=== PATIENT | male | born 1980 | race Caucasian/White ===

== ENCOUNTER 2021-04-16 00:45 | Day surgery (SDC) | payer OTHER, SELFPAY ==
[2021-04-03 13:23] VITALS: BMI 24.4
[2021-04-16 11:16] VITALS: BP 151/89; PULSE 68; RESP 16; TEMP 36.9; O2SAT 100; BMI 22.9
[2021-04-16] MEDS: LACTATED RINGERS 1,000 ML 150 ML IV CONT (11:23)
--- NOTE | 2021-04-16 11:36 | WPDANESEPPF ---
Anes - Initial Pre Proc Eval Procedure: Operation Date: 04/16/21 12:30 Proposed Procedures p Colonoscopy - Benjamin Thakur MD Date/Time: 04/16/21 11:36 Surgeon: Benjamin Thakur MD Pre Op Diagnosis: diarrhea Patient Data Age: 40 Gender: M Height: 1.75 m Weight: 70.6 kg Last Vital Signs Temp 98.5 F 04/16/21 11:16 Pulse 68 04/16/21 11:16 Resp 16 04/16/21 11:16 BP 151/89 H 04/16/21 11:16 Pulse Ox 100 04/16/21 11:16 Allergies Allergy/AdvReac Type Severity Reaction Status Date / Time No Known Allergies Allergy Verified 04/16/21 11:16 Home Medications Medication Instructions Recorded Confirmed Type tadalafil 10 mg tablet 10 mg PO DAILY PRN #24 tablet 07/31/20 03/23/21 Rx Patient hx anesthesia problems: none Family hx anesthesia problems: none Results Review: All pre-operative results and documents have been reviewed as part of the pre-operative evaluation. [facility] Past Medical History Medical History History of pelvic trauma History of traumatic fracture of hip Family History Family History Father Family history of type 1 diabetes mellitus Social History Social History Social History: Single Years smoked: 15 Smoking status: Never smoker Tobacco type: cigarettes Second hand tobacco smoke exposure: No Smoking end date: 07/19/13 Alcohol intake: current Alcohol use details: Occasionally Substance use: never Substance use type: does not use Living arrangements: with roommate(s) Additional living arrangements comments: Pt and his girlfriend, along with 4 children live together. Gender identity (if verbalized by the patient): Male Sexual Orientation (if Verbalized by the Patient): Straight or Heterosexual Spiritual care concerns: No Anes - Eval Final PreProcedure Day of Procedure 04/16/21 11:36 Patient weight: normal Heart: regular rate and rhythm Lungs: clear to auscultation Airway: Mallampati scale class II Neurological: alert and oriented Last oral intake: >/= 8 hours ASA classification: II Emergent: no Anesthetic plan: proceed Anesthesia type and monitoring: general GIVS and standard monitoring Results Review: All pre-operative results and documents have been reviewed as part of the pre-operative evaluation. Informed Consent: The patient's anesthetic plan and its attendant risks and benefits were discussed with the patient/family/POA. Questions were solicited and answers provided to the satisfaction of the patient/family/POA.
--- NOTE | 2021-04-16 11:50 | WPDHPUPDATE1 ---
History and Physical Update Update Date/Time: 04/16/21 11:50 History and Physical has been reviewed, including an updated exam of the patient. There are NO changes in the patient's condition. Risks, benefits, and alternatives have been discussed and questions answered. Patient agrees to proceed with procedure.
[2021-04-16 12:15] VITALS: BP 120/63; PULSE 65; RESP 21; O2SAT 98
[2021-04-16 12:25] VITALS: BP 125/71; PULSE 64; RESP 18; O2SAT 100
[2021-04-16 12:35] VITALS: BP 125/75; PULSE 60; RESP 16; O2SAT 100
== END 2021-04-16 12:40 | disposition home or self-care (01) ==
PROVIDERS: PCP Family Medicine; Visit Provider Internal Medicine Gastroenterology
PROC: 0DJD8ZZ Inspection of Lower Intestinal Tract, Via Natural or Artificial Opening Endoscopic (ICD-10-PCS; CPT 45378; principal; 2021-04-16 12:30)
DX: R19.7 Diarrhea, unspecified (principal); D12.2 Benign neoplasm of ascending colon; D12.3 Benign neoplasm of transverse colon; D12.5 Benign neoplasm of sigmoid colon; K63.5 Polyp of colon; K57.30 Diverticulosis of large intestine without perforation or abscess without bleeding
CPT/HCPCS: 45385; 45380; 88305; J2704; J7120

== ENCOUNTER 2022-01-07 12:23 | Outpatient (CLI) | payer OTHER, SELFPAY | END 2022-01-07 12:24 | disposition home or self-care (01) | LOC: ANHSURGERY 12:26 | PROVIDERS: PCP Family Medicine; Visit Provider Surgery | DX: K40.90 Unilateral inguinal hernia, without obstruction or gangrene, not specified as recurrent (principal); Z01.818 Encounter for other preprocedural examination | CPT/HCPCS: 36415; 86850; 86900; 86901 ==

== ENCOUNTER 2022-01-12 02:10 | Day surgery (SDC) | payer OTHER, SELFPAY ==
[2022-01-06 14:42] VITALS: BMI 23.1
--- NOTE | 2022-01-06 14:50 | PC.NURSE ---
Report to the Outpatient Waiting Room, entrance under the green pavilion located off [facility], at time _1000_ on date _01/12/22_. OR Time: _1200_. - You and your visitor will be asked a series of questions to screen for COVID 19 for your protection. - Only one visitor is allowed at this time. - The patient visitor is requested to leave or wait in car when not with patient. - A mask is required within the hospital. Patients may have clear liquids (water, carbonated beverages, clear teas, apple juice) until 3 hours prior to surgery (0900 AM) with a maximum of 20 ounces. - No food from midnight until time of surgery Take the following medications with a SIP of water the morning of surgery: N/A Medications to discontinue per physician N/A Date to take last dose Please no make-up, nail greenlandic, hairspray, perfume, deodorant, or body powder the day of surgery. No jewelry (including any body piercings) or valuables the day of surgery, leave them at home. Please take a shower or bath the night before, or the morning of, surgery with an antibacterial soap. Wear comfortable, loose fitting clothing. - Jewelry must be removed prior to entering the operating room. Rings and piercings that are not removed may be cut off. - The hospital will not accept responsibility for valuables. - Please leave all valuables, including medications, at home the day of surgery. If you are going home after surgery, a licensed motor coach bus driver must drive you home. - NO public transportation without another adult. - We recommend that an adult stay with you for 24 hours following discharge. - We also recommend that you do not drive, make important decision, drink alcoholic beverages, or take any drugs that were not prescribed by your health care provider for at least 24 hours after your discharge time. Follow any additional instructions given to you from your surgeon. HIBICLENS SHOWER AM OF SURGERY If you or anyone in your household have experienced Covid symptoms in the past week, please notify your surgeon or the nurse liaison at the phone number below for possible testing. Telephone instructions given to ____PT and asked if any additional questions and then verbalized understanding. Patient advised to call surgeon office or pre surgery nurse liaison [phone] if any additional questions.
[2022-01-12] VITALS (9 sets, daily range): BP systolic 119–147; BP diastolic 67–89; PULSE 55–80; RESP 16–18; TEMP 36.8; O2SAT 98–100
--- NOTE | 2022-01-12 07:43 | WPDANESEPPF ---
Anes - Initial Pre Proc Eval Procedure: Operation Date: 01/12/22 09:00 Proposed Procedures p Robotic Assisted Left Inguinal Hernia Repair with Mesh - Anne Sterling MD Date/Time: 01/12/22 07:43 Surgeon: Anne Sterling MD Pre Op Diagnosis: left inguinal hernia Patient Data Age: 41 Gender: M Height: 1.75 m Weight: 70.9 kg Allergies Allergy/AdvReac Type Severity Reaction Status Date / Time No Known Allergies Allergy Verified 01/06/22 14:42 Home Medications Medication Instructions Recorded Confirmed Type tadalafil 10 mg tablet (Cialis) 10 mg PO DAILY PRN sexual activity 05/08/21 01/06/22 Rx #24 tabs Patient hx anesthesia problems: none Family hx anesthesia problems: none Results Review: All pre-operative results and documents have been reviewed as part of the pre-operative evaluation. [facility] Past Medical History Medical History History of pelvic trauma History of traumatic fracture of hip 2006 [facility] Family History Family History Father Family history of type 1 diabetes mellitus Social History Social History Years smoked: 15 Smoking status: Former smoker Tobacco type: cigarettes Second hand tobacco smoke exposure: No Smoking end date: 07/19/13 Additional smoking assessment comments: STATES SMOKED 1-2PK/WEEK/10YRS/QUIT 2011 Alcohol intake: current Alcohol use details: STATES 1-2 DRINKS A MONTH Substance use: never Substance use type: does not use Living arrangements: with friend(s) Additional living arrangements comments: LIVES WITH SIGNIFICANT OTHER 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 Gender identity (if verbalized by the patient): Male Sexual Orientation (if Verbalized by the Patient): Straight or Heterosexual Spiritual care concerns: No Anes - Eval Final PreProcedure Day of Procedure 01/12/22 07:43 Patient weight: normal Heart: regular rate and rhythm Lungs: clear to auscultation Airway: Mallampati scale class II Neurological: alert and oriented Last oral intake: >/= 8 hours ASA classification: II Emergent: no Anesthetic plan: proceed Anesthesia type and monitoring: general ETT and standard monitoring Results Review: All pre-operative results and documents have been reviewed as part of the pre-operative evaluation. Informed Consent: The patient's anesthetic plan and its attendant risks and benefits were discussed with the patient/family/POA. Questions were solicited and answers provided to the satisfaction of the patient/family/POA.
[2022-01-12] MEDS: ACETAMINOPHEN 500 MG TABLET 1000 MG PO (07:45)
[2022-01-12] MEDS: KETOROLAC 15 MG/ML VIAL (*BKC) IV PUSH (07:45)
[2022-01-12] MEDS: LACTATED RINGERS 1,000 ML 30 ML IV CONT ×2 (07:45→10:29)
--- NOTE | 2022-01-12 09:02 | WPDHPUPDATE1 ---
History and Physical Update Update Date/Time: 01/12/22 09:02 History and Physical has been reviewed, including an updated exam of the patient. There are NO changes in the patient's condition. Risks, benefits, and alternatives have been discussed and questions answered. Patient agrees to proceed with procedure.
[2022-01-12] MEDS: ceFAZolin 2 GM/D5W 50 ML 2 GM/50 ML BAG IVPB (09:12)
[2022-01-12] MEDS: LIDO 1%/EPINEPHRINE/PF 1:200,000 30 ML VIAL XX (10:12)
--- NOTE | 2022-01-12 10:32 | W.PM.PROC2 ---
Procedure Note - Detailed Date of Procedure 01/12/22 Pre-op Diagnosis left inguinal hernia Post-op Diagnosis Same Procedure Performed robotic assisted left inguinal hernia repair with mesh Surgeon Anne Sterling MD Anesthesia General Indications 41 y/o M presenting to office c bulging, discomfort in L groin. Workup c/w LIH. Findings indirect left inguinal hernia Description of Procedure Patient was brought into the operating room and placed in the supine position. After adequate induction of general anesthesia, the patient was prepped and draped in normal sterile fashion. A time-out was then done to verify the patient's identity, as well as the procedure being performed. I began by making a 8 mm incision in the supraumbilical region, a Veress needle was then placed into the peritoneal cavity. CO2 gas was then insufflated and after adequate pneumoperitoneum was achieved, the Veress needle was removed. I then placed an 8 mm trocar through this incision. I then placed the endoscope through this trocar site and under direct visualization placed 2 further 8 mm ports in the right and left mid abdomen. The [employer] robot was then docked to the 3 trocar sites. I then scrubbed out and went to the robotic console. Upon examining the pelvis, it was noted that the patient had a moderate left inguinal hernia. The right side was examined and no hernia defect was noted. I began by making a preperitoneal flap approximately 6 cm superior to the defect. This flap was carried medially past the umbilical ligaments and laterally to the transversalis. It then began dissection of my medial compartment taking this down to the pubic tubercle. I then began the lateral dissection taking this down to the transversalis fascia. Once these compartments were achieved, I began dissection around the cord structures. A moderate sized indirect hernia was noted at this point. Using careful dissection, was able to reduce indirect hernia sac off the cord structures. Once this was adequately done, I went ahead and placed a large piece of 3D Max mesh into the abdominal cavity. The mesh was carefully positioned, centering the center of the mesh over the indirect defect. Once this was done, was very satisfied with our repair. Using 3-0 Vicryl sutures, I tacked the mesh medially to Elliot's ligament. Two lateral sutures were placed from the mesh to the transversalis fascia. I then closed the peritoneal flap with a running 2.0 V Lock suture. The abdomen was then desufflated, and all ports were removed. All incisions were then closed with the 4.0 monocryl suture. Dermabond was placed on each wound. The patient tolerated the procedure well, was extubated in the operating room postoperatively, and will now be transferred to the recovery room in stable condition. Implants large 3DMax mesh Estimated Blood Loss 10 Drains No Packing No Pathology None sent Complications No immediate complications Condition Stable Disposition PACU [facility] Billing Surgery - Charge Forward: Surgery Billing
[2022-01-12] MEDS: fentaNYL CITRATE INJ (*CRX) 100 MCG/2 ML VIAL 25 MCG IV PUSH ×2 (10:52→10:55)
== END 2022-01-12 12:45 | disposition home or self-care (01) ==
PROVIDERS: PCP Family Medicine; Visit Provider Surgery
PROC: 8E0Y4CZ Robotic Assisted Procedure of Lower Extremity, Percutaneous Endoscopic Approach (ICD-10-PCS; CPT 49650; principal; 2022-01-12 09:00)
DX: K40.90 Unilateral inguinal hernia, without obstruction or gangrene, not specified as recurrent (principal); Z87.891 Personal history of nicotine dependence
CPT/HCPCS: 49650; S2900; 36415; 86850; 86900; 86901; A9270; C1781; J0690; J1100; J1170; J1885; J2250; J2405; J2704; J3010; J7030; J7120

== ENCOUNTER → 2023-03-24 13:07 | Outpatient (CLI) | payer OTHER, SELFPAY ==
--- NOTE | ~2023-03-24 | US_ITS ---
EXAMINATION: US soft tissue head and neck DATE: 03/24/2023 13:28 INDICATION: Localized enlarged cervical lymph nodes. TECHNIQUE: Multiple grayscale and Doppler ultrasound images of the left and right neck were obtained. COMPARISON: None FINDINGS: There is a borderline enlarged jugular chain lymph nodes measuring 2.8 x 1.7 x 0.9 cm on the right an d 3.9 x 1.1 x 1.0 cm on the left. There are several smaller lymph nodes on both the left and right, t he next largest measuring up to 6 mm in maximal short axis diameter on the right and 4 mm on the left . IMPRESSION: 1. A couple borderline enlarged jugular chain lymph nodes measuring 1 cm in maximal short axis diamet er on the left and 9 mm on the right. Differential would include reactive lymphadenopathy, lymphoma o r metastatic disease. Depending on clinical history and level of clinical could consider either follo w-up ultrasound or ultrasound-guided core needle biopsy. Reviewed, dictated and finalized at location A. IMPRESSION: 1. A couple borderline enlarged jugular chain lymph nodes measuring 1 cm in max imal short axis diameter on the left and 9 mm on the right. Differential would include reactive lymphadenopathy, lymphoma or metastatic disease. Depending on clinical history and level of clinical could consider either follow-up ultrasou nd or ultrasound-guided core needle biopsy.
== END ==
PROVIDERS: PCP Family Medicine; Visit Provider Physician Assistant
DX: R59.0 Localized enlarged lymph nodes (principal)
CPT/HCPCS: 76536

== ENCOUNTER 2023-04-05 10:17 | Outpatient (CLI) | payer OTHER, SELFPAY ==
--- NOTE | ~2023-04-05 | US_ITS ---
EXAMINATION: US biopsy lymph node DATE: 04/05/2023 11:33 INDICATION: Borderline enlarged right jugular chain lymph nodes. TECHNIQUE: The procedure including the risks and benefits was discussed with the patient. Risks discu ssed included bleeding and infection. The patient understood the risks and agreed to proceed. The sk in overlying the right neck was prepped and draped in usual sterile fashion. Anesthetic was administ ered with 1% lidocaine subcutaneously. An 18 gauge core biopsy needle was advanced under continuous ultrasound observation to the largest of several right jugular chain lymph nodes. 7 core biopsy spec imens were obtained, 3 placed in formalin and 4 in RPMI media. The needle was removed and the entry site was cleaned and dressed. Post procedure ultrasound demonstrated no hemorrhage. FINDINGS: Ultrasound images demonstrate biopsy needle advanced into the largest 2.9 x 0.9 cm right ju gular chain lymph node. IMPRESSION: 1. Successful Ultrasound-guided biopsy of a 2.9 x 0.9 cm right jugular chain lymph node. Reviewed, dictated and finalized at location A. IMPRESSION: 1. Successful Ultrasound-guided biopsy of a 2.9 x 0.9 cm right jugular chain ly mph node.
== END 2023-04-05 10:18 | disposition home or self-care (01) ==
PROVIDERS: PCP Family Medicine; Visit Provider Physician Assistant
DX: R59.0 Localized enlarged lymph nodes (principal)
CPT/HCPCS: 38505; 76942; 88305; 88341; 88342

== ENCOUNTER → 2023-04-09 12:36 | Outpatient (CLI) | payer OTHER, SELFPAY ==
--- NOTE | ~2023-04-09 | CT_ITS ---
Clinical Indication: Suspicious cervical lymph node, evaluate for malignancy CT Scan of the Chest with Contrast: Technique: Contiguous sections were acquired throughout the chest after intravenous administration of 75 cc of Omnipaque 350. Dose reduction technique was used on this scan by utilizing automated exposu re control and iterative reconstruction technique. The dose-length product (DLP) was 178.32 mGy-cm. Findings: There is no evidence of any significant mediastinal, hilar or axillary lymphadenopathy. There is no f illing defect in the pulmonary arterial tree to suggest pulmonary embolus. There is no evidence of ao rtic dissection or aneurysm. There is no evidence of pleural or pericardial effusion. The lungs are clear. No pulmonary nodules or infiltrates are noted. Images through the upper abdomen reveal no abnormalities. Impression: No significant abnormality seen in the chest. Reviewed, dictated and finalized at [facility]. Impression: No significant abnormality seen in the chest.
== END ==
PROVIDERS: PCP Physician Assistant; Visit Provider Physician Assistant
DX: R59.0 Localized enlarged lymph nodes (principal)
CPT/HCPCS: 71260; Q9967

== ENCOUNTER 2023-07-22 13:57 | Outpatient (CLI) | payer OTHER, SELFPAY ==
--- NOTE | ~2023-07-22 | PE_ITS ---
EXAMINATION: PET skull to mid thigh DATE: 07/22/2023 15:53 INDICATION: Head and neck lymphadenopathy TECHNIQUE: Blood glucose level was 80 mg/dL. 10.64 mCi of 18-fluorodeoxyglucose (18-FDG) was administ ered i.v. Low dose computed tomography (CT) images were acquired from the base of the brain to the pr oximal thighs for attenuation correction and anatomic localization. Positron emission tomography (PET ) images were acquired in the same distribution beginning 62 minutes after injection. Images includin g fused PET/CT images were reconstructed in axial, coronal, and sagittal planes. Automated exposure c ontrol technique was employed. The dose-length product was 681.39mGy-cm. COMPARISON: Chest CT dated 04/09/2023 and ultrasound dated 03/24/2023 FINDINGS: Head/neck: There is symmetric increased activity in the oral cavity, palatine and lingual tonsils, parotid gland s, submandibular glands, laryngeal muscles and ocular muscles without CT correlate, likely physiolog ic. There are couple level 2 right jugular chain lymph nodes measuring 6 mm and 8mm in short axis rojas meter which remains within normal limits which demonstrate mild FDG uptake with maximal SUV of 4.3. T here is a similar size 7 mm lymph node at the contralateral high left jugular chain with maximal SUV of 3.5. No pathologically enlarged cervical lymphadenopathy or more FDG avid lesions in the visualize d head or neck. Chest: Lungs are clear with no suspicious pulmonary nodules, pneumonia, pulmonary edema or other pulmonary i nfiltrates. Heart size is normal. No pericardial or pleural effusion. Thoracic aorta is normal in vj iber. No pathologically enlarged or FDG avid thoracic lymphadenopathy. Abdomen/pelvis/proximal thighs: Physiologic renal accumulation and excretion of FDG activity in the kidneys, bladder and along portio ns of ureters. 4 mm nonobstructing stone at the lower pole of the right kidney. Prostatomegaly. Yennifer l degree and heterogenous pattern of increased uptake throughout the liver without radiologic correla te or dominant FDG avid lesion. Tiny calcification at the dome of liver consistent with old granuloma tous disease. The gallbladder, pancreas, spleen and bilateral adrenal glands are normal. Mild uptake scattered throughout the bowels without radiologic correlate, also likely physiologic. There are few scattered colonic diverticula without adjacent inflammatory stranding to suggest diverticular colitis . Normal appendix. No other abnormal foci of increased FDG uptake or pathologically enlarged lymphade nopathy in the abdomen, pelvis or proximal thighs. Musculoskeletal: There is streak artifact associated with plain screw fixation at the right acetabulum. Small scleroti c bone island at the left femoral head. There are no suspicious lytic, blastic or FDG avid bone lesio ns. IMPRESSION: 1. Minimal FDG uptake associated with a few mildly prominent but still normal sized bilateral level 2 jugular chain lymph nodes which are likely reactive. No other FDG avid lesions are pathologically en larged lymphadenopathy. Reviewed, dictated and finalized at location A. IMPRESSION: 1. Minimal FDG uptake associated with a few mildly prominent but still normal s ized bilateral level 2 jugular chain lymph nodes which are likely reactive. No other FDG avid lesions are pathologically enlarged lymphadenopathy.
[2023-07-22 14:16] LABS: Glucose Point of Care 80 mg/dl (65-105)
== END 2023-07-22 13:58 | disposition home or self-care (01) ==
PROVIDERS: PCP Physician Assistant; Visit Provider Internal Medicine Hematology & Oncology
DX: R59.0 Localized enlarged lymph nodes (principal)
CPT/HCPCS: 78815; A9552

== ENCOUNTER 2023-11-02 09:24 | Outpatient (CLI) | payer OTHER, SELFPAY ==
--- NOTE | ~2023-11-02 | US_ITS ---
EXAMINATION: US soft tissue head and neck DATE: 11/02/2023 10:30 INDICATION: Generalized enlarged lymph nodes. TECHNIQUE: Multiple grayscale and Doppler ultrasound images of the head and neck were obtained. COMPARISON: PET/CT 07/22/2023 FINDINGS: There are normal lymph nodes in the neck bilaterally. IMPRESSION: 1. No abnormal neck mass or lymphadenopathy. Reviewed, dictated and finalized at location E.
== END 2023-11-02 09:25 | disposition home or self-care (01) ==
PROVIDERS: PCP Physician Assistant; Visit Provider Internal Medicine Hematology & Oncology
DX: R59.1 Generalized enlarged lymph nodes (principal)
CPT/HCPCS: 76536

== ENCOUNTER 2024-07-31 09:52 | Day surgery (SDC) | payer OTHER, SELFPAY ==
[2024-06-14 09:15] VITALS: BMI 22.4
[2024-07-17 08:28] VITALS: BMI 23.8
[2024-07-31 11:04] VITALS: BP 140/85; PULSE 64; RESP 16; TEMP 36.8; O2SAT 100
[2024-07-31] MEDS: LACTATED RINGERS 1,000 ML 150 ML IV CONT (11:07)
--- NOTE | 2024-07-31 11:35 | P.PNAN_ITS ---
Anes - Initial Pre Proc Eval Procedure: Operation Date: 07/31/24 13:45 Proposed Procedures p Diagnostic Colonoscopy - Cuauhtemoc Garza MD Date/Time: 07/31/24 11:35 Surgeon: Cuauhtemoc Garza MD Pre Op Diagnosis: Personal HX of Colonic Polyps Patient Data Age: 43 Gender: M Height: 1.75 m Weight: 70.1 kg Last Vital Signs Temp 36.8 C 07/31/24 11:04 Pulse 64 07/31/24 11:04 Resp 16 07/31/24 11:04 BP 140/85 07/31/24 11:04 Pulse Ox 100 07/31/24 11:04 O2 Del Method Room Air 07/31/24 11:04 Allergies Allergy/AdvReac Type Severity Reaction Status Date / Time No Known Allergies Allergy Verified 07/31/24 11:02 Home Medications ?Medication ?Instructions ?Recorded ?Confirmed ?Type No Home Medications 07/17/24 07/31/24 History Patient hx anesthesia problems: none Family hx anesthesia problems: none Results Review: All pre-operative results and documents have been reviewed as part of the pre- operative evaluation. [facility] Past Medical History Medical History History of pelvic trauma History of traumatic fracture of hip 2006 [facility] Surgical History Surgical History H/O left inguinal hernia repair Left inguinal hernia repair w mesh, Da Lynda assisted 01/12/22. Family History Family History Father Family history of type 1 diabetes mellitus Social History Social History Years smoked: 15 Smoking status: Former smoker Tobacco type: cigarettes Second hand tobacco smoke exposure: No Smoking end date: 07/19/13 Additional smoking assessment comments: STATES SMOKED 1-2PK/WEEK/10YRS/QUIT 2011 Alcohol intake: current Alcohol use details: Occasionally, usually beer Substance use: never Substance use type: does not use Other substance usage details: occasional Living arrangements: with friend(s) Additional living arrangements comments: LIVES WITH SIGNIFICANT OTHER Occupation/Education: occupation 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 Gender identity (if verbalized by the patient): Male Sexual Orientation (if Verbalized by the Patient): Straight or Heterosexual Spiritual care concerns: No Anes - Eval Final PreProcedure Day of Procedure 07/31/24 11:35 Patient weight: normal Heart: regular rate and rhythm Lungs: clear to auscultation Airway: Mallampati scale class II Neurological: alert and oriented Last oral intake: >/= 8 hours ASA classification: II Emergent: no Anesthetic plan: proceed Anesthesia type and monitoring: general GIVS and standard monitoring Results Review: All pre-operative results and documents have been reviewed as part of the pre- operative evaluation. Informed Consent: The patient's anesthetic plan and its attendant risks and benefits were discussed with the patient/family/POA. Questions were solicited and answers provided to the satisfaction of the patient/family/POA.
--- NOTE | 2024-07-31 11:53 | P.HP_ITS ---
H&P: HPI History of Present Illness Date/Time: 07/31/24 11:53 Chief Complaint: surveillance colonoscopy Narrative: The patient has a history of colonic polyps, the last colonoscopy was in 2020, finding several tubular adenomas Review of Systems Review of Systems: All systems reviewed & are unremarkable except as noted in HPI and below PMFSH Past Medical History Medical History History of pelvic trauma History of traumatic fracture of hip 2006 [facility] Surgical History Surgical History H/O left inguinal hernia repair Left inguinal hernia repair w mesh, Da Lynda assisted 01/12/22. Family History Family History Father Family history of type 1 diabetes mellitus Social History Social History Years smoked: 15 Smoking status: Former smoker Tobacco type: cigarettes Second hand tobacco smoke exposure: No Smoking end date: 07/19/13 Additional smoking assessment comments: STATES SMOKED 1-2PK/WEEK/10YRS/QUIT 2011 Alcohol intake: current Alcohol use details: Occasionally, usually beer Substance use: never Substance use type: does not use Other substance usage details: occasional Living arrangements: with friend(s) Additional living arrangements comments: LIVES WITH SIGNIFICANT OTHER Occupation/Education: occupation 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 Gender identity (if verbalized by the patient): Male Sexual Orientation (if Verbalized by the Patient): Straight or Heterosexual Spiritual care concerns: No Meds Home Medications and Allergies Home Medications ?Medication ?Instructions ?Recorded ?Confirmed ?Type No Home Medications 07/17/24 07/31/24 History Allergies Allergy/AdvReac Type Severity Reaction Status Date / Time No Known Allergies Allergy Verified 07/31/24 11:02 Vital Signs Vital Signs - 24 hr 07/31/24 11:04 Temperature 98.3 F Pulse Rate 64 Respiratory Rate 16 Blood Pressure 140/85 Pulse Oximetry 100 Oxygen Delivery Room Air Exam Const: General: cooperative and healthy appearing Resp: Effort & Inspection: normal respiratory effort and able to speak in complete sentences Auscultation: clear to auscultation bilaterally Cardio: Rate: regular rate Rhythm: regular rhythm GI: Inspection: normal to inspection GI Palp: No No hepatosplenomegaly present Auscultation: normal bowel sounds Rectal Exam: deferred Skin: General skin exam: normal color Psych: Appearance: grossly normal Mental Status: mental status grossly normal Assessment and Plan Assessment and plan (1) History of colonic polyps: Code(s): Z86.0100 - Personal history of colon polyps, unspecified Status: Acute Plan The patient is deemed a good candidate for the procedure. Consent signed. Will proceed.
[2024-07-31] MEDS: SIMETHICONE ORAL SUSPENSION 20 MG/0.3 ML 30 ML BOTTLE 0.6 ML IRRIGATION (12:29)
[2024-07-31 12:36] VITALS: BP 107/81; PULSE 66; RESP 16; O2SAT 100
[2024-07-31 12:46] VITALS: BP 104/68; PULSE 64; RESP 16; O2SAT 100
--- NOTE | 2024-07-31 12:50 | WPDANESPN ---
Anes - Prog Note Post-Op Date/Time: 07/31/24 12:50 Cardiovascular status: normal Respiratory status: normal Airway patency: baseline Mental status: baseline Post-Op hydration status: normal Vital Signs: Last Vital Signs Temp 36.8 C 07/31/24 11:04 Pulse 66 07/31/24 12:36 Resp 16 07/31/24 12:36 BP 107/81 07/31/24 12:36 Pulse Ox 100 07/31/24 12:36 O2 Del Method Room Air 07/31/24 12:36 Pain Score (VAS): 0/10 I/O: Intake & Output 07/30/24 07/31/24 07/31/24 23:59 07:59 15:59 Intake Total 400 Balance 400 Patient Feedback: Patient satisfied with anesthetic care.
[2024-07-31 12:56] VITALS: BP 122/73; PULSE 52; RESP 18; O2SAT 100
== END 2024-07-31 13:02 ==
PROVIDERS: PCP Family Medicine; Referring Provider Internal Medicine Gastroenterology; Visit Provider Internal Medicine Gastroenterology
PROC: 0DJD8ZZ Inspection of Lower Intestinal Tract, Via Natural or Artificial Opening Endoscopic (ICD-10-PCS; CPT 45378; principal; 2024-07-31 13:45)
DX: Z12.11 Encounter for screening for malignant neoplasm of colon (principal); K57.30 Diverticulosis of large intestine without perforation or abscess without bleeding; Z86.0100 Personal history of colon polyps, unspecified
CPT/HCPCS: 45378

== ENCOUNTER 2025-05-07 16:09 | Emergency (ER) | payer OTHER, SELFPAY ==
--- NOTE | ~2025-05-07 | CT_ITS ---
CT abdomen pelvis w con INDICATION:right flank pain, abd pain . COMPARISON: None. TECHNIQUE: Axial images of the abdomen and pelvis were obtained following infusion of 100 mL Isovue 300. Dose optimization technique was utilized. FINDINGS: The lung bases are clear. The liver parenchyma is unremarkable. No intrahepatic mass or ductal dilatation is evident. The gallbladder is unremarkable. The pancreas and spleen are normal in appearance. The adrenal glands are symmetric in size. There is moderate right hydronephrosis and hydroureter secondary to a 5 mm stone in the proximal right ureter. No cystic mass is evident. There is no solid mass. There is no hydronephrosis. Asymmetric diminished enhancement of the right kidney as compared to the left is noted. The stomach and bowel loops are unremarkable. The appendix is normal in appearance. There is colonic diverticulosis without evidence of acute diverticulitis. The bladder and rectum are normal. No free intraperitoneal fluid or air is evident. There is no significant retroperitoneal lymphadenopathy. The aorta, visceral vessels and renal arteries demonstrate normal caliber and patency. The lower thoracic and lumbar vertebrae are in normal alignment. IMPRESSION: Moderate right hydronephrosis and hydroureter with 5 mm stone in the proximal right ureter. All CT scans at this facility are performed using low dose modulation techniques as appropriate to perform exam including the following: automated exposure control; use of iterative reconstruction technique; adjustment of the mA and/or kV according to patient size (this includes techniques or standardized protocols for targeted exams where dose is matched to indication/reason for exam). Reviewed, dictated and finalized at location S. IMPRESSION: Moderate right hydronephrosis and hydroureter with 5 mm stone in the proximal r ight ureter. All CT scans at this facility are performed using low dose modulation techniqu es as appropriate to perform exam including the following: automated exposure c ontrol; use of iterative reconstruction technique; adjustment of the mA and/or kV according to patient size (this includes techniques or standardized protocol s for targeted exams where dose is matched to indication/reason for exam).
--- OUTSIDE RECORDS SUMMARY | 2025-05-07 08:10 | XMS_ITS | Encounter Summary ---
Author Organization [facility] Health Address [address] [place] [address] Care Team Providers Care Electric Shaver Mechanic Name Role Phone Unavailable Primary Care Provider Unavailabl e Encounter Details Date Type Department Care Team (Late st Contact Info) Description 05/07/2025 8:10 AM CDT Hospital Encounter [facility] Urgent Care [address] [place] [address] Saqib Feliz APRN-CNP [address] [place] [address] Social History Tobacco Use Types Packs/Day Years Used Date Smoking Tobacco: Never Assessed Sex and Gender Information Value Date Recorded Sex Assigned at Not on file Legal Sex Male 8:05 AM CDT Gender Identity Not on file Sexual Orientation Not on file documented as of this encounter Last Filed Vital Signs Vital Sign Reading Time Taken Comments Blood Pressure 154/85 05/07/2025 8:25 AM CDT Pulse 56 05/07/2025 8:25 AM CDT Temperature 36.3 C (97.4 F) 05/07/2025 8:25 AM CDT Respiratory Rate 18 05/07/2025 8:25 AM CDT Oxygen Saturation 100% 05/07/2025 8:25 AM CDT Inhaled Oxygen Concentration - - Weight 72.6 kg (160 lb) 05/07/2025 8:25 AM CDT Height 175.3 cm (5' 9) 05/07/2025 8:25 AM CDT Body Mass Index 23.63 05/07/2025 8:25 AM CDT documented in this encounter Discharge Instructions * Patient Instructions* Saqib Feliz APRN-CNP - 05/07/2025 9:22 AM CDT -Drink as much water as possible -Avoid foods and drinks that can irritate your bladder, such as caffeine, alcohol, chocolate, tomato products, coffee and tea, citrus fruits, spicy foods, and carbonated beverages. -Urinate when you feel the urge. Do not hold your urine. Urinate as soon as you feel you have to. Seek care (go to Urgent Care or ER) immediately if: You are urinating very little or not at all. You are nauseous and/or vomiting. You have a high fever with shaking chills. You have side or back pain that gets worse. documented in this encounter Progress Notes * Saqib Feliz APRN-CNP - 05/07/2025 8:35 AM CDT [facility] History of Present Illness Patient Identification Bryant Wheatley is a 44 year old male. PCP: No primary care provider on file. Patient information was obtained from patient. History/Exam limitations: none. Patient presented to the Urgent Care by private vehicle. Chief Complaint Flank pain Reason for Visit: flank pain right side HPI Patient here with complaint of right flank pain starting 3 days ago. Symptoms improved over the last couple of days, but starting yesterday worsened. He has noticed urinary frequency over the last few weeks. Denies any blood in urine. He also reports having some nausea. Denies any burning with urination. He reports that the pain sometimes radiates to his lower abdomen. No known fevers. No historyof kidney stones. Past Medical History[1] Past Surgical History[2] Family History[3] Medications[4] Allergies[5] Social History Tobacco Use Smoking status: Not on file Smokeless tobacco: Not on file Substance Use Topics Alcohol use: Not on file Review of Systems Review of Systems Constitutional: Negative for fever. Genitourinary: Positive for flank pain and frequency. Negative for dysuria and urgency. All other systems reviewed and are negative. Physical Exam BP 154/85 Pulse 56 Temp 97.4 ??F (36.3 ??C) Resp 18 Ht 1.753 m (5' 9) Wt 72.6 kg (160 lb) SpO2 100% BMI 23.63 kg/m?? No results found. Physical Exam Vitals and nursing note reviewed. Constitutional: General: He is not in acute distress. Appearance: Normal appearance. He is normal weight. He is not ill-appearing. Cardiovascular: Rate and Rhythm: Normal rate and regular rhythm. Pulmonary: Effort: Pulmonary effort is normal. Breath sounds: Normal breath sounds. Abdominal: General: Abdomen is flat. Bowel sounds are normal. There is no distension. Palpations: Abdomen is soft. Tenderness: There is no abdominal tenderness. There is no right CVA tenderness, left CVA tenderness, guarding or rebound. Skin: General: Skin is warm and dry. Neurological: General: No focal deficit present. Mental Status: He is alert and oriented to person, place, and time. Psychiatric: Mood and Affect: Mood normal. Behavior: Behavior normal. Procedures Procedures Lab Interpretation Oxygen Saturation Interpretation Hospital Encounter on 05/07/25 URINALYSIS - POCT (IP) URGENT CARE Result Value Ref Range Glucose UA neg Negative Bilirubin UA neg Negative Ketone UA neg Negative Specific [place] UA POCT 1.020 1.000 - 1.030 Blood UA 3+ Negative pH UA 6.0 5.0 - 8.0 pH units Protein UA neg Negative Urobilinogen UA 0.2 0.2 - 1.0 EU/dL Nitrite UA neg Negative Leukocyte UA neg Negative QC Verified Yes Yes No results found. Progress Notes Medical Decision Making I have reviewed the: Nursing Notes, Vitals. I have interpreted the following results: Labs, X-Ray, Oxygen Saturation. Assessment Urine shows hematuria. KUB does not note any stone. Instructed to follow up with his PCP if symptoms persist. Tamsulosin prescribed and urine strainer provided. Additional instructions, recommendations and ER precautions provided via patient instructions. Patient leaves alert, ambulatory and in NAD at time of discharge. ICD-10-CM 1. Right flank pain R10.A1 URINALYSIS - POCT (IP) URGENT CARE XR ABDOMEN 1 VW (KUB) 2. Hematuria, unspecified type R31.9 XR ABDOMEN 1 VW (KUB) Plan Orders Placed This Encounter XR ABDOMEN 1 VW (KUB) Standing Status: Future Number of Occurrences: 1 Expiration Date: 05/07/2026 Release to patient: Immediate URINALYSIS - POCT (IP) URGENT CARE Standing Status: Standing Number of Occurrences: 1 Release to patient: Immediate tamsulosin (Flomax) 0.4 MG capsule Sig: Take 1 (one) capsule by mouth once daily after breakfast At the same time every day after a meal. Dispense: 30 capsule Refill: 0 AVS reviewed with patient. The Patient indicates understanding of these issues and agrees with the plan. Patient discharged to Home. [1] No past medical history on file. [2] No past surgical history on file. [3] No family history on file. [4] Current Outpatient Medications Medication Sig Dispense Refill tamsulosin (Flomax) 0.4 MG capsule Take 1 (one) capsule by mouth once daily after breakfast At the same time every day after a meal. 30 capsule 0 No current facility-administered medications for this encounter. [5] No Known Allergies * Cecelia Moreno RN - 05/07/2025 8:26 AM CDT Pt c/o right side flank pain, pain radiates from the back to the front pt states frequency in urination but denies blood. Standing Order for Urinalysis Dysuria: NO Urinary Urgency: YES Urinary Frequency: YES Hematuria: NO Urinary Incontinence: NO Flank pain: YES Suprapubic pain: NO If yes any of the above, patient meets criteria. [facility] Standing Order criteria has been met for urinalysis testing and appropriate testing has been ordered and collected. Pt c/o nausea documented in this encounter Plan of Treatment Not on file documented as of this encounter Procedures Procedure Name Priority Date/Time Associated Diagnosis Comments URINALYSIS - POCT (IP) URGENT CARE Routine 05/07/2025 8:40 AM CDT Right flank pain documented in this encounter Results * XR ABDOMEN 1 VW (KUB) (05/07/2025 8:46 AM CDT) Anatomical Region Laterality Modality Abdomen Radiographic Corinna ging 05/07/2025 9:16 AM CDT Impressions 05/07/2025 9:17 AM CDT IMPRESSION:. > Interpreting Provider: Helen Smart MD on 05/07/2025 9:17 AM Narrative 05/07/2025 9:17 AM CDT PROCEDURE: XR ABDOMEN KUB DATE/TIME OF EXAM: 05/07/2025 8:46 AM CLINICAL INFORMATION: None relevant/not provided if blank. Indication: R10.A1: Right flank pain R31.9: Hematuria, unspecified type Additional History: COMPARISON: None. FINDINGS: Moderate amount of stool and gas noted within the colon and rectum. No central small bowel dilatation seen. Bilateral pelvic phleboliths identified.. Internal fixation of right pelvic fracture. Procedure Note Helen Smart MD - 05/07/2025 PROCEDURE: XR ABDOMEN KUB DATE/TIME OF EXAM: 05/07/2025 8:46 AM CLINICAL INFORMATION: None relevant/not provided if blank. Indication: R10.A1: Right flank pain R31.9: Hematuria, unspecified type Additional History: COMPARISON: None. FINDINGS: Moderate amount of stool and gas noted within the colon and rectum. No central small bowel dilatation seen. Bilateral pelvic phleboliths identified.. Internal fixation of right pelvic fracture. IMPRESSION:. > Interpreting Provider: Helen Smart MD on 05/07/2025 9:17 AM Saqib Feliz COMMERCIAL ATTACHE-DIGITAL RECRUITER DIAGNOSTIC IMAGING O RDERABLES Final Result * URINALYSIS - POCT (IP) URGENT CARE (05/07/2025 8:40 AM CDT) Glucose UA neg Negative [facility] Bilirubin UA neg Negative [facility] Ketone UA neg Negative [facility] Specific [place] UA POCT 1.020 1.000 - 1.030 [facility] Blood UA 3+ Negative [facility] pH UA 6.0 5.0 - 8.0 pH units [facility] Protein UA neg Negative [facility] Urobilinogen UA 0.2 0.2 - 1.0 EU/dL [facility] Nitrite UA neg Negative [facility] Leukocyte UA neg Negative [facility] QC Verified Yes Yes [facility] Urine URINE / Unknown 05/07/2025 8 :40 AM CDT us Saqib Feliz COMMERCIAL ATTACHE-DIGITAL RECRUITER LAB - POINT OF CARE ORDERABLES Final Result [facility] [address] [place] [address] documented in this encounter Visit Diagnoses Diagnosis Right flank pain- Primary Abdominal pain, unspecified site Hematuria, unspecified type Right flank pain Abdominal pain, unspecified site Hematuria, unspecified type documented in this encounter
--- OUTSIDE RECORDS SUMMARY | 2025-05-07 08:10 | XMS_ITS | Encounter Summary ---
Author Organization [facility] Health Address [address] [place] [address] Care Team Providers Care Charging Operator Name Role Phone Unavailable Primary Care Provider Unavailabl e Encounter Details Date Type Department Care Team (Late st Contact Info) Description 05/07/2025 8:10 AM CDT Hospital Encounter [facility] Health Urgent Care [address] [place] [address] Saqib Feliz APRN-CNP [address] [place] [address] Social History Tobacco Use Types [...] Feliz APRN-CNP - 05/07/2025 8:35 AM CDT [facility] History of Present Illness Patient Identification Bryant [...] neg Negative Ketone UA neg Negative Specific [place] UA POCT 1.020 1.000 - 1.030 Blood [...] of the above, patient meets criteria. [facility] Standing Order criteria has been met for [...] MD on 05/07/2025 9:17 AM Saqib Feliz DIPLOMA PHARMACY TECHNICIAN-TESTING AND REGULATING TECHNICIAN DIAGNOSTIC IMAGING O RDERABLES Final Result * URINALYSIS - POCT (IP) URGENT CARE (05/07/2025 8:40 AM CDT) Glucose UA neg Negative [facility] Bilirubin UA neg Negative [facility] Ketone UA neg Negative [facility] Specific [place] UA POCT 1.020 1.000 - 1.030 DP [...] 8 :40 AM CDT us Saqib Feliz DIPLOMA PHARMACY TECHNICIAN-TESTING AND REGULATING TECHNICIAN LAB - POINT OF CARE ORDERABLES Final Result [facility] [address] [place] [address] documented in this encounter Visit Diagnoses Diagnosis Right flank pain- Primary Abdominal pain, unspecified site Hematuria, unspecified type Right flank pain Abdominal pain, unspecified site Hematuria, unspecified type documented in this encounter
--- OUTSIDE RECORDS SUMMARY | 2025-05-07 08:42 | XMS_ITS | Encounter Summary ---
Author Organization [facility] Health Address [address] [place] [address] Care Team Providers Care Field Services Director Name Role Phone Unavailable Primary Care Provider Unavailabl e Encounter Details Date Type Department Care Team (Late st Contact Info) Description 05/07/2025 8:42 AM CDT Hospital Encounter [facility] Urgent Care [address] [place] [address] Saqib Feliz, SCHOOL JANITOR-ARMORER TECHNICIAN [address] [place] [address] Social History Tobacco Use Types Packs/Day Years Used Date Smoking Tobacco: Never Assessed Sex and Gender Information Value Date Recorded Sex Assigned at Not on file Legal Sex Male 8:05 AM CDT Gender Identity Not on file Sexual Orientation Not on file documented as of this encounter Plan of Treatment Not on file documented as of this encounter Procedures Procedure Name Priority Date/Time Associated Diagnosis Comments XR ABDOMEN KUB STAT 05/07/2025 8:46 AM CDT Right flank pain Hematuria, unspecified type documented in this encounter Results * XR [...] MD on 05/07/2025 9:17 AM Saqib Feliz SCHOOL JANITOR-ARMORER TECHNICIAN DIAGNOSTIC IMAGING O RDERABLES Final Result documented in this encounter Visit Diagnoses Diagnosis Right flank pain Abdominal pain, unspecified site Hematuria, unspecified type documented in this encounter
--- OUTSIDE RECORDS SUMMARY | 2025-05-07 08:42 | XMS_ITS | Encounter Summary ---
Author Organization [facility] Health Address [address] [place] [address] Care Team Providers Care Hospitality Host Name Role Phone Unavailable Primary Care Provider Unavailabl e Encounter Details Date Type Department Care Team (Late st Contact Info) Description 05/07/2025 8:42 AM CDT Hospital Encounter [facility] Urgent Care [address] [place] [address] Saqib Feliz, PROPERTY OFFICER-ON CALL [address] [place] [address] Social History Tobacco Use Types [...] MD on 05/07/2025 9:17 AM Saqib Feliz PROPERTY OFFICER-ON CALL DIAGNOSTIC IMAGING O RDERABLES Final Result documented in this encounter Visit Diagnoses Diagnosis Right flank pain Abdominal pain, unspecified site Hematuria, unspecified type documented in this encounter
[2025-05-07 16:24] VITALS: BP 161/89; PULSE 65; RESP 20; TEMP 36.9; O2SAT 97
[2025-05-07] MEDS: MORPHINE SULFATE (*CRX) 4 MG/ML INJ IV PUSH (18:09)
[2025-05-07] MEDS: ONDANSETRON INJ 4 MG/2 ML VIAL IV PUSH (18:09)
[2025-05-07 18:11] VITALS: BP 163/88; PULSE 57; RESP 18; O2SAT 98
[2025-05-07 18:14] LABS: Add Urine Microscopic? YES; Appearance Urine Clear (Clear); Glucose Urine UA Negative (Negative); Leukocyte Esterase Ur Trace LEU/UL (Negative); Nitrate Urine Negative (Negative); Non Pathogenic Casts 0-2; Specific Grav Ur 1.025 (1.001-1.035)
[2025-05-07 18:20] LABS: Hematocrit 42.5 % (42.0-52.0); Hemoglobin 14.1 g/dL (14.0-18.0); Immature Granulocyte Percent A 0.4 % (0-0.5); Lymphocytes Absolute Auto 1.36 K/mm3 (0.9-3.2); Mean Corpuscular HGB Conc 33.2 g/dl (32-36); Mean Corpuscular Hemoglobin 31.2 pg (26-34); Mean Corpuscular Volume 94.0 fl (80-100); Nucleated Red Blood Cells Absolute Auto 0.000 K/mm3 (0.0-0.012); Nucleated Red Blood Cells Perc 0.0 % (0.0-0.2); Platelet Count Result 319 k/mm3 (150-375); Red Blood Count 4.52 M/mm3 (4.6-6.20); White Blood Count 14.7 K/mm3 (4.5-10.0)
[2025-05-07 18:26] LABS: Alanine Aminotransferase 15 U/L (6-50); Albumin Level 4.2 g/dL (3.5-5.1); Alkaline Phosphatase 87 U/L (38-126); Anion Gap 8 mmol/L (4-12); Aspartate Amino Transferase 25 U/L (17-59); Bilirubin,Total 0.8 mg/dL (0.2-1.3); Blood Urea Nitrogen 8 mg/dL (9-20); Calcium 9.2 mg/dL (8.4-10.2); Carbon Dioxide 26 mmol/L (22-30); Chloride 99 mmol/L (98-107); Estimated CRCL calculation 61 ml/min; Estimated Glomerular Filt Rate 57; Glucose 109 mg/dL (65-110); Lipase 874 U/L (23-300); Potassium 4.0 mmol/L (3.4-5.0); Sodium 133 mmol/L (137-145); Total Protein 7.4 g/dL (6.3-8.2)
--- OUTSIDE RECORDS SUMMARY | 2025-05-07 18:35 | XMS_ITS | Encounter Summary ---
Author Organization [facility] Address [facility] [place] [address] Care Team Providers Care Validation Engineer Name Role Phone Unavailable Primary Care Provider Unavailabl e Encounter Details Date Type Department Care Team (Latest Contact Info) Description 05/07/2025 Travel Social History Tobacco Use Types Packs/Day Years Used Date Smoking Tobacco: Never Assessed Sex and Gender Information Value Date Recorded Sex Assigned at Not on file Legal Sex Male 8:05 AM CDT Gender Identity Not on file Sexual Orientation Not on file documented as of this encounter Plan of Treatment Not on file documented as of this encounter Visit Diagnoses Not on filedocumented in this encounter
--- OUTSIDE RECORDS SUMMARY | 2025-05-07 18:35 | XMS_ITS | Clinical Summary ---
Author Organization [facility] Address [address] [place] [address] Care Team Providers Care Deckhand Sponge Boat Name Role Phone Unavailable Primary Care Provider Unavailabl e Source Comments [facility],non-owned Affiliates and Associated Physician Practices is amultiple site organization consisting of ambulatory clinics and hospital sitesin [place], [place], [place] and [place]. This disclosure is being madepursuant to the Care Everywhere program and may not contain all information available regarding this patient. Last updated 18.[facility] Allergies No known active allergies Medications * Be aware that medications may not be up to date on this document. Alwaysverify current medications with the patient. tamsulosin (Flomax) 0.4 MG capsule Take 1 (one) capsule by mouth once daily after breakfast At the same time every day after a meal. 30 capsule Active Encounters Date Type Department Care Team Description 05/07/2025 8:42 AM CDT Hospital Encounter [facility] Urgent Care [address] [place] [address] Saqib Feliz APRN-CNP 05/07/2025 8:10 AM CDT Hospital Encounter [facility] Urgent Care [address] [place] [address] Saqib Feliz APRN-CNP 05/07/2025 Travel from Last 3 Months Social History Tobacco Use Types Packs/Day Years Used Date Smoking Tobacco: Never Assessed Sex and Gender Information Value Date Recorded Sex Assigned at Not on file Legal Sex Male 8:05 AM CDT Gender Identity Not on file Sexual Orientation Not on file Last Filed Vital Signs Vital Sign Reading [...] Mass Index 23.63 05/07/2025 8:25 AM CDT Plan of Treatment Health Maintenance Due Date Last Done Comments COLOGUARD (AGES 45-75) - COLON CA SCREENING 1978 COLON MONITORING 1978 COLONOSCOPY - COLON CA SCREENING 1978 CT COLONOGRAPHY - COLON CA SCREENING 1978 Colorectal Cancer Screening 1978 FIT - COLON CA SCREENING 1978 FLEX SIG - COLON CA SCREENING 1978 LIPID TESTING 1978 HIV SCREENING 1993 HEPATITIS C SCREENING 09/13/1996 DTAP/TDAP/TD VACCINES (1 - Tdap) 1997 HEPATITIS B VACCINE (1 of 3 - 19+ 3-dose series) 1997 DEPRESSION SCREENING 07/19/2024 COVID-19 VACCINE (4 - 2024- season) 2025 06/26/2021, 10/18/2020, 09/27/2020 INFLUENZA VACCINE (#1) 2025 2, 04/02/2020, 05/11/2019, Additional history exists ZOSTER VACCINE (1 of 2) 2028 HIB VACCINE Aged Out No longer eligi ble based on patient's age to complete this topic HPV VACCINE Aged Out No longer eligi ble based on patient's age to complete this topic MENINGOCOCCAL (Group B) VACCINE SHARED DECISION-MAKING Aged Out No longer eligible based on patient's age to complete this topic MENINGOCOCCAL GROUPS A/C/Y/W VACCINE Aged Out No longer eligible based on patient's age to complete this topic PNEUMOCOCCAL VACCINE Aged Out No long er eligible based on patient's age to complete this topic Procedures Procedure Name Priority Date/Time Associated Diagnosis Comments XR ABDOMEN KUB STAT 05/07/2025 8:46 AM CDT Right flank pain Hematuria, unspecified type URINALYSIS - POCT (IP) URGENT CARE Routine 05/07/2025 8:40 AM CDT Right flank pain from Last 3 Months Results * XR ABDOMEN 1 VW (KUB) (05/07/2025 8:46 AM CDT) Anatomical Region Laterality Modality Abdomen Radiographic [place] ging 05/07/2025 9:16 AM CDT Impressions 05/07/2025 [...] MD on 05/07/2025 9:17 AM Saqib Feliz DIRECTOR OF PROFESSIONAL SERVICES-OPERATING ROOM NURSE DIAGNOSTIC IMAGING O RDERABLES Final Result * URINALYSIS - POCT (IP) URGENT CARE (05/07/2025 8:40 AM CDT) Glucose UA neg Negative [facility] Bilirubin UA neg Negative [facility] Ketone UA neg Negative [facility] Specific [place] UA POCT 1.020 1.000 - 1.030 [facility] Blood UA 3+ Negative [facility] pH UA 6.0 [...] / Unknown 05/07/2025 8 :40 AM CDT Saqib Feliz DIRECTOR OF PROFESSIONAL SERVICES-OPERATING ROOM NURSE LAB - POINT OF CARE ORDERABLES Final Result Performing Organization Address City/State/[facility] Co de Phone Number [facility] [address] [place] [address] from Last 3 Months Insurance [employer]
--- OUTSIDE RECORDS SUMMARY | 2025-05-07 18:35 | XMS_ITS | Clinical Summary ---
[facility] Address [address] [place] [address] Care Team Providers Care Regional Owner Operator Truck Driver Name Role Phone Isabela Garcia MD Primary Care Provider [phone] Allergies No known active allergies Medications tadalafiL (CIALIS) 20 mg tablet Take 20 mg by mouth 1 time daily as needed for Erectile Dysfunction. Active Active Problems No known active problems Family History Medical History Relation Name Comments Heart Disease Father Relation Name Status Comments Brother Alive Daughter Alive Father Alive Mother Alive Son Alive Social History Tobacco Use Types Packs/Day Years Used Date Smoking Tobacco: Former Cigarettes Q uit: 2013 Smokeless Tobacco: Never Tobacco Cessation:Counseling Given: Not Answered Alcohol Use Standard Drinks/Week Comments Yes 0 (1 standard drink = 0.6 oz pur e alcohol) occasional Sex and Gender Information Value Date Recorded Sex Assigned at Not on file Legal Sex Male 2:04 PM CHARTER COACH DRIVER Gender Identity Not on file Sexual Orientation Not on file Last Filed Vital Signs Vital Sign Reading Time Taken Comments Blood Pressure 164/92 08/10/2023 1:46 PM CHARTER COACH DRIVER Pulse 73 08/10/2023 1:45 PM CHARTER COACH DRIVER Temperature 35.9 C (96.7 F) 08/10/2023 1:45 PM CHARTER COACH DRIVER Respiratory Rate 10 08/10/2023 1:45 PM CHARTER COACH DRIVER Oxygen Saturation 98% 08/10/2023 1:45 PM CHARTER COACH DRIVER Inhaled Oxygen Concentration - - Weight 71.2 kg (157 lb) 08/10/2023 1:45 PM CHARTER COACH DRIVER Height 175.3 cm (5' 9) 07/08/2023 8:59 AM CHARTER COACH DRIVER Body Mass Index 23.18 07/08/2023 8:59 AM CHARTER COACH DRIVER Plan of Treatment Health Maintenance Due Date Last Done Comments DTAP/TDAP/TD VACCINES (1 - Tdap) 1997 HEPATITIS B VACCINES (1 of 3 - 19+ 3-dose series) 1997 COLORECTAL SCREENING 09/19/2023 Colorectal Cancer Screening 09/19/2023 FIT-DNA Q 3 years 09/19/2023 FIT/FOBT Q 1 year 09/19/2023 Flex Sig/CT Colonography Q 5 years 09/19/2023 INFLUENZA VACCINE (#1) 2025 HPV VACCINES Aged Out No longer eligi ble based on patient's age to complete this topic Insurance [employer] OPEN ACCESS O [employer] OPEN ACCESS O Care Teams Regional Owner Operator Truck Driver Relationship Specialty Start Date End Date Isabela Garcia MD [address] [address] PCP - General Family Practice 07/06/23
--- OUTSIDE RECORDS SUMMARY | 2025-05-07 18:35 | XMS_ITS | Clinical Summary ---
Author Organization [facility] Address [address] [place] [address] Care Team Providers Care Water Resource Engineer Name Role Phone Unavailable Primary Care Provider Unavailabl e Social History Tobacco Use Types Packs/Day Years Used Date Smoking Tobacco: Never Assessed Sex and Gender Information Value Date Recorded Sex Assigned at Not on file Legal Sex Male 8:03 AM CDT Gender Identity Not on file Sexual Orientation Not on file Last Filed Vital Signs Vital Sign Reading Time Taken Comments Blood Pressure 120/68 12/16/2016 8:28 AM CDT Pulse 60 12/16/2016 8:28 AM CDT Temperature - - Respiratory Rate - - Oxygen Saturation - - Inhaled Oxygen Concentration - - Weight 77.1 kg (170 lb) 12/16/2016 8:28 AM CDT Height 175.3 cm (5' 9) 12/16/2016 8:28 AM CDT Body Mass Index 25.1 12/16/2016 8:28 AM CDT Plan of Treatment Health Maintenance Due Date Last Done Comments Colorectal Cancer Screening Colonoscopy (10 Years) 1978 Annual Physical 1981 Hepatitis C 1996 DTaP, Tdap and Td Vaccines ( 1 - Tdap) 1997 Hepatitis B Vaccines (1 of 3 - 19+ 3-dose series) 1997 COVID-19 Vaccine ( - 2023-2 5 season) 2025 Influenza Adult (#1) 2025 05/08/2014, 05/26/2013 Meningococcal B Vaccine Aged Out No l onger eligible based on patient's age to complete this topic Meningococcal Vaccine Aged Out No akil kelly eligible based on patient's age to complete this topic Pneumococcal Vaccine: Pediatrics (0 to 5 Years) and At-Risk Patients (6 to 49 Years) Aged Out No longer eligible b ased on patient's age to complete this topic RSV Immunizations Under 20 Months Aged Out No longer eligible b ased on patient's age to complete this topic
--- OUTSIDE RECORDS SUMMARY | 2025-05-07 18:35 | XMS_ITS | Encounter Summary ---
Author Organization [facility] Address [address] [place] [address] Care Team Providers Care Automobile Sales Representative Name Role Phone Unavailable Primary Care Provider Unavailabl e Encounter Details Date Type Department Care Team (Late st Contact Info) Description 04/06/2023 Lab Requisition [facility] - Pathology Lab [address] [place] [address] Sascha Truong MD 1 [place], [place] [id number] Illness, unspecified Social History Tobacco Use Types Packs/Day Years [...] Procedure Name Priority Date/Time Associated Diagnosis Comments PATHOLOGY TISSUE Routine 04/05/2023 11:1 0 AM CDT Illness, unspecified documented in this encounter Results * PATHOLOGY TISSUE (04/05/2023 11:10 AM CDT) Case Report Surgical Pathology Report Case: [id number] Authorizing Provider: Sascha Truong MD Collected: 04/05/2023 11:10 AM Ordering Location: [facility] Pathology Lab Received: 04/06/2023 12:37 PM Pathologist: Abdirizak Jaimes MD Specimen: Lymph Node Biopsy 04/07/2023 11:41 AM CDT [facility] PATH[facility] Final Diagnosis Lymph node, biopsy cores: - Fragments of organized lymphoid tissue - No overt malignancy seen 04/07/2023 11:41 AM [facility] at 1141 CDT Microscopic Description and Comment The core biopsies of the lymph node are tiny, precluding full assessment of architecture. Immunohistochemistry performed show a mixture of CD3+, CD5+ T-cells and CD20+ B-cells. There appear to be small benign germinal centers expressing BCL-6 and lacking BCL-2. Cyclin-D1 is negative. CK20 is negative for carcinoma. The tissue pieces are to small for assessment of possible lymphoma. If clinically indicated, and excisional biopsy is recommended. 04/07/2023 11:41 AM [facility] Clinical History Enlarged lymph node. 04/07/2023 11:41 AM [facility] Materials Received Received are 5 slide(s) labeled [id number] and 1 block(s) along with a copy of the outside pathology report. The materials originate from [place] [address]. All original materials are returned to the referring institution, along with a copy of our final report. 04/07/2023 11:41 AM [facility] Pathologist Location at [facility] 04/07/2023 11:41 AM [facility] Disclaimer The performance characteristics of all immunohistochemical and indirect immunofluorescence stains (if any) cited in this report were determined by the Histopathology Laboratory of [facility]. Some of these tests were developed by our own laboratory and have not been cleared or approved by the US Food and Drug Administration. The FDA does not require this test to go through premarket FDA review. These tests are used for clinical purposes. They should not be regarded as investigational or for research. This laboratory is certified under the Clinical Laboratory Improvement Amendments (CLIA) as qualified to perform high complexity clinical laboratory testing. This case has been personally reviewed and interpreted by the attending (teaching) pathologist. 04/07/2023 11:41 AM [facility] Embedded Images 04/07/2023 11:41 AM [facility] Pathology/Cytolo gy BIOPSY OF LYMPH NODE / Unknown 04/05/2023 11:10 AM CDT 04/06/2023 12:37 PM CDT us Sascha Truong MD LAB - PATHOLOGY/CYTOLOGY ORD ERABLES Final Result Performing Organization Address City/State/[place] Co de Phone Number [facility] [address] [phone] documented in this encounter Visit Diagnoses Diagnosis Illness, unspecified documented in this encounter
--- OUTSIDE RECORDS SUMMARY | 2025-05-07 18:35 | XMS_ITS | Clinical Summary ---
Author Organization [facility] Address [facility] [place] [address] Care Team Providers Care Site Lead Name Role Phone Isabela Garcia MD Primary Care Provider Allergies No known active allergies Medications tadalafiL (CIALIS) 20 mg tablet Take 1 tablet (20 mg total) by mouth daily as needed Active Active Problems No known active problems Surgical History Surgery Date Site/Laterality Comments HIP SURGERY HERNIA REPAIR Social History Tobacco Use Types Packs/Day Years Used Date Smoking Tobacco: Former Cigarettes Smokeless Tobacco: Never Tobacco Cessation:Counseling Given: Not Answered Personal Safety Answer Date Recorded Getting School Help Needed Not on file 07/20 Sex and Gender Information Value Date Recorded Sex Assigned at Not on file Legal Sex Male 2:27 PM OB/GYN PHYSICIAN Gender Identity Not on file Sexual Orientation Not on file Obstetrics History Last Filed Vital Signs Vital Sign Reading Time Taken Comments Blood Pressure - - Pulse - - Temperature - - Respiratory Rate - - Oxygen Saturation - - Inhaled Oxygen Concentration - - Weight 68.8 kg (151 lb 9.6 oz) 07/30/2023 9:34 A M OB/GYN PHYSICIAN Height 174.6 cm (5' 8.75) 07/30/2023 9:34 AM CS T Body Mass Index 22.55 07/30/2023 9:34 AM OB/GYN PHYSICIAN Plan of Treatment Health Maintenance Due Date Last Done Comments Colon Cancer Screening-Colonoscopy 1978 Depression Screening 1978 Hepatitis C Screening 1978 DTaP/Tdap/Td Vaccine (1 - Tdap) 1989 Hepatitis B Screening 1996 Regular Well Visit/Exam 18-64 1996 Covid-19 Vaccine (4 - 2024-2 6 season) 2025 06/26/2021, 10/18/2020, 09/27/2020 Influenza Vaccine (#1) 2025 HPV Vaccines Aged Out No longer eligi ble based on patient's age to complete this topic Pneumococcal vaccine <65 Aged Out No longer eligible based on patient's age to complete this topic Insurance [employer] OPEN ACCESS [employer] ACCESS Care Teams Site Lead Relationship Specialty Start Date End Date Isabela Garcia MD [address] [address] PCP - General Family Medicine 04/09/23
--- OUTSIDE RECORDS SUMMARY | 2025-05-07 18:35 | XMS_ITS | Encounter Summary ---
Author Organization [facility] Address [address] [place] [address] Care Team Providers Care Compressor Assembler Name Role Phone Unavailable Primary Care Provider Unavailabl e Encounter Details Date Type Department Care Team (Late st Contact Info) Description 04/05/2023 Lab Requisition [facility] - Pathology Lab [address] [place] [address] Sascha Truong MD 1 [place] [address] Localized enlarged lymph nodes Social History Tobacco Use Types Packs/Day Years [...] Procedure Name Priority Date/Time Associated Diagnosis Comments FLOW CYTOMETRY TISSUE PANEL Routine 04/05/2023 11:10 AM CDT Localized enlarged lymph nodes documented in this encounter Results * FLOW CYTOMETRY TISSUE PANEL (04/05/2023 11:10 AM CDT) Case Report Flow Cytometry Case: [id number] Authorizing Provider: Sascha Truong MD Collected: 04/05/2023 11:10 AM Ordering Location: [facility] Pathology Lab Received: 04/05/2023 04:01 PM Pathologist: Abdirizak Jaimes MD Specimen: Lymph Node, RIGHT NECK 04/06/2023 10:34 AM CDT [facility] PATHOLOGY LAB Final Diagnosis Lymph node, flow cytometry: - Too few hematopoietic cells for flow cytometry 04/06/2023 10:34 AM T [facility] PATHOLOGY LAB at 1034 CDT Flow Cytometry Interpretation A cytospin prepared from the flow cytometry specimen has been reviewed for clinical quality assurance specialist purposes. 04/06/2023 10:34 AM T [facility] Flow Cytometry Results Too few hematopoietic cells for flow cytometric analysis. 04/06/2023 10:34 AM T [facility] Reason for test Localized enlarged lymph nodes 785.6 04/06/2023 10:34 AM T [facility] PATHOLOG[facility] LAB Client Specimen ID # [id number] 04/06/2023 10:34 AM T [facility] Pathologist Location at [facility] 04/06/2023 10:34 AM T [facility] Disclaimer Test performed at [facility], [address] [place] [address], [id number]. *The established laboratory minimum viability is 70%. Values below the minimum may result in the failure to find an abnormal population of cells. This test was developed and its performance characteristics determined by the Flow Cytometry Laboratory. It has not been cleared by the [place] Food and Drug Administration (FDA). The FDA has determined that such clearance or approval is not necessary. This test is used for clinical purposes. It should not be regarded as investigational or for research. This laboratory is regulated under the Clinical Laboratory Improvement Amendments of 1998 (CLIA) as a qualified to perform high complexity clinical testing. 04/06/2023 10:34 AM [facility] Embedded Images 10:34 AM T [facility] Pathology/Cytolo gy ENTIRE LYMPH NODE / Unknown 04/05/2023 11:10 AM CDT 04/05/2023 4:01 PM CDT Sascha Truong MD LAB - PATHOLOGY/CYTOLOGY ORD ERABLES Final Result [facility] [address] [place] [address]. [place] [address], [facility] [phone] documented in this encounter Visit Diagnoses Diagnosis Localized enlarged lymph nodes Enlargement of lymph nodes documented in this encounter
[2025-05-07] MEDS: SODIUM CHLORIDE 0.9% IV 1,000 ML 999 ML IV CONT (18:50)
[2025-05-07] MEDS: HYDROmorphone HCL INJ (*CRX) 1 MG/ML SYR 0.5 MG IV PUSH (18:56)
--- NOTE | 2025-05-07 19:11 | ED_ITS ---
HPI - Abdominal Pain General Chief Complaint: Abdominal Pain Stated Complaint: back pain Time Seen by Provider: 05/07/25 18:04 Source: patient Mode of arrival: ambulatory Limitations: no limitations History of Present Illness HPI narrative: This is a 44-year-old male that presents to the emergency department for right- sided flank pain. Ongoing intermittently over the last week. Reports the pain radiates to his lower abdomen. Reports associated nausea vomiting. Denies fevers, diarrhea, dysuria. He was at Urgent Care and told he had blood in his urine. Related Data Allergies Allergy/AdvReac Type Severity Reaction Status Date / Time No Known Allergies Allergy Verified 05/07/25 16:28 Review of Systems 2 Review of Systems: All systems reviewed & are unremarkable except as noted in HPI and below PMFSH Past Medical History Medical History History of pelvic trauma History of traumatic fracture of hip 2006 [facility] Surgical History Surgical History H/O left inguinal hernia repair Left inguinal hernia repair w mesh, Da Lynda assisted 01/12/22. Family History Family History Father Family history of type 1 diabetes mellitus Social History Social History Years smoked: 15 Smoking status: Former smoker Tobacco type: cigarettes Second hand tobacco smoke exposure: No Smoking end date: 07/19/13 Additional smoking assessment comments: STATES SMOKED 1-2PK/WEEK/10YRS/QUIT 2011 Alcohol intake: current Alcohol use details: Occasionally, usually beer Substance use: never Substance use type: does not use Other substance usage details: occasional Living arrangements: with friend(s) Additional living arrangements comments: LIVES WITH SIGNIFICANT OTHER Occupation/Education: occupation 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 HEAD: Normocephalic, atraumatic. EYES: EOMI. CHEST: Clear to auscultation. No respiratory distress. No wheezes rales or rhonchi HEART: Regular rate and rhythm. No murmur heard. Normal peripheral pulses. ABDOMEN: Soft, nontender, nondistended, normal active bowel sounds. EXTREMITIES: Normal range of motion. No edema. SKIN: Warm, dry, no rash. NEURO: No focal deficits. Alert and oriented x3. PSYCH: Normal mood and affect Course Course Emergency Course: patient updated on his workup and agrees with plan of care Vital Signs Vital signs: Vital Signs Temperature 98.4 F 05/07/25 16:24 Pulse Rate 65 05/07/25 16:24 Respiratory Rate 20 05/07/25 16:24 Blood Pressure 161/89 H 05/07/25 16:24 Pulse Oximetry 97 05/07/25 16:24 Oxygen Delivery Room Air 05/07/25 16:24 Temperature 98.4 F 05/07/25 16:24 Pulse Rate 70 05/07/25 20:34 Respiratory Rate 16 05/07/25 20:34 Blood Pressure 161/90 H 05/07/25 20:34 Pulse Oximetry 97 05/07/25 20:34 Oxygen Delivery Room Air 05/07/25 16:24 MDM - Abdominal Pain MDM Narrative Medical decision making narrative: Patient presents the emergency department for right flank pain, lower abdominal pain. He is afebrile and nontoxic appearing. His vitals are stable. CBC with leukocytosis to 14.7, likely due to vomiting. Metabolic panel with mild elevation in creatinine. Patient hydrated with a L of IV fluids in the ED. lipase is elevated, likely due to recent vomiting. Urine with red blood cells. 6-10 white blood cells, patient is not having any dysuria. This will be sent for culture. CT abdomen and pelvis showing moderate right hydronephrosis and hydroureter with a 5 mm stone in the proximal ureter. Patient updated on his workup and agrees with plan of care. Will be given follow-up with urology. He was given warnings to return to the ER Differential Diagnosis Differential diagnosis: Likely acute appendicitis, calculus of kidney, pancreatitis and other (UTI, biliary colic) Lab Data Attestation: I reviewed the patient's lab results. 05/07/25 18:01 05/07/25 18:01 Labs: Lab Results 05/07/25 Range/Units 18:01 WBC 14.7 H (4.5-10.0) K/mm3 RBC 4.52 L (4.6-6.20) M/mm3 Hgb 14.1 (14.0-18.0) g/dL Hct 42.5 (42.0-52.0) % MCV 94.0 (80-100) fl MCH 31.2 (26-34) pg MCHC 33.2 (32-36) g/dl RDW 12.9 (11.5-14.5) % Plt Count 319 (150-375) k/mm3 MPV 9.3 (7.4-10.4) fl Immature Gran % (Auto) 0.4 (0-0.5) % Neut % (Auto) 83.1 H (45.5-73.1) % Lymph % (Auto) 9.2 L (18.3-44.2) % Sully % (Auto) 6.5 (2.6-8.5) % Eos % (Auto) 0.2 (0-4.4) % Baso % (Auto) 0.6 (0.2-1.2) % Lymph # (Auto) 1.36 (0.9-3.2) K/mm3 Sully # (Auto) 1.0 H (0.1-0.6) K/mm3 Eos # (Auto) 0.0 (0-0.3) K/mm3 Baso # (Auto) 0.1 (0.0-0.1) K/mm3 Abs Immat Gran (auto) 0.06 H (0.00-0.031) K/mm3 Absolute Neuts (auto) 12.2 H (1.3-6.7) K/mm3 Absolute Nucleated RBC 0.000 (0.0-0.012) K/mm3 Nucleated RBC % 0.0 (0.0-0.2) % Sodium 133 L (137-145) mmol/L Potassium 4.0 (3.4-5.0) mmol/L Chloride 99 (98-107) mmol/L Carbon Dioxide 26 (22-30) mmol/L Anion Gap 8 (4-12) mmol/L BUN 8 L (9-20) mg/dL Creatinine 1.35 H (0.7-1.3) mg/dL Estim Creat Clear Calc 61 ml/min Estimated GFR 57 L (59 - ) Glucose 109 (65-110) mg/dL Calcium 9.2 (8.4-10.2) mg/dL Total Bilirubin 0.8 (0.2-1.3) mg/dL AST 25 (17-59) U/L ALT 15 (6-50) U/L Alkaline Phosphatase 87 (38-126) U/L Total Protein 7.4 (6.3-8.2) g/dL Albumin 4.2 (3.5-5.1) g/dL Lipase 874 H (23-300) U/L Urine Color Yellow (Yellow) Urine Appearance Clear (Clear) Urine pH 5.5 (5.0-9.0) Ur Specific [place] 1.025 (1.001-1.035) Urine Protein Trace (Negative) mg/dL Urine Glucose (UA) Negative (Negative) mg/dL Urine Ketones Trace H (Negative) mg/dL Ur Blood (Man) 2+ H (Negative) Urine Nitrate Negative (Negative) Urine Bilirubin Negative (Negative) Urine Urobilinogen 0.2 (<2.0) mg/dL Leukocyte Esterase Rfl Trace H (Negative) TALON/UL Urine RBC 21-50 H (0-2) /hpf Urine WBC 6-10 H (0-3) /hpf Ur Squamous Epith Cells None seen (Few) /hpf Urine Bacteria None seen /hpf Urine Casts 0-2 Imaging Data Radiologist's impression: ITS Impressions Abdomen/Pelvis CT 05/07/25 18:52 IMPRESSION: Moderate right hydronephrosis and hydroureter with 5 mm stone in the proximal right ureter. All CT scans at this facility are performed using low dose modulation techniques as appropriate to perform exam including the following: automated exposure control; use of iterative reconstruction technique; adjustment of the mA and/or kV according to patient size (this includes techniques or standardized protocols for targeted exams where dose is matched to indication/reason for exam). Critical Care Time Critical Care Time Critical Care Time: No Discharge Plan Discharge Clinical Impression: Kidney stone Patient Disposition: Home Condition: Stable Instructions: Kidney Stones (ED), How to Strain Your Urine (ED) Additional Instructions: Return to the ER if you experience fever, abdominal pain with nausea and vomiting, you are unable to keep down liquids or solids, pain or burning with urination, or any other symptoms that are concerning to you Remain well hydrated. Continue tamsulosin as prescribed. Decl-hii-ppxujkr pain medication as needed. Prescribed pain medication as needed. Strain your urine Follow up with Urology Patient Language: Citizen Of [place] Prescriptions: New hydrocodone-acetaminophen 5-325 mg tablet 1 tablet PO Q6H PRN (Reason: pain) Qty: 20 0RF No Action tadalafil [Cialis] 10 mg tablet 10 mg PO DAILY PRN (Reason: sexual activity) Qty: 24 1RF Rx Instructions: administer approximately 30min before sexual activity; do not use more than 1 dose per 24hrs Follow-up/Referrals: Maynor Gonzalez MD [Primary Care Provider, Family Practice] Braden Sorensen MD [Physician, Urology]
--- NOTE | 2025-05-07 19:18 | PC.NURSE ---
This RN received report from Trisha CURTIS.
--- OUTSIDE RECORDS SUMMARY | 2025-05-07 19:33 | XMS_ITS | Encounter Summary ---
Author Organization [facility] Address [address] [place] [address] Care Team Providers Care Wine Blender Name Role Phone Unavailable Primary Care Provider Unavailabl e Encounter Details Date Type Department Care Team (Late st Contact Info) Description 04/06/2023 Lab Requisition [facility] - Pathology Lab [address] [place] [address] Sascha Truong MD [address] [place], [place] [id number] Illness, unspecified Social History Tobacco Use Types [...] CDT) Case Report Surgical Pathology Report Case: [id number] Authorizing Provider: Sascha Truong MD Collected: 04/05/2023 11:10 AM Ordering Location: [facility] Pathology Lab Received: 04/06/2023 12:37 PM Pathologist: Abdirizak Jaimes MD Specimen: Lymph Node Biopsy 04/07/2023 11:41 AM CDT [facility] Final Diagnosis Lymph node, biopsy cores: - Fragments of organized lymphoid tissue - No overt malignancy seen 04/07/2023 11:41 AM [facility] at 1141 CDT Microscopic [...] excisional biopsy is recommended. 04/07/2023 11:41 AM [facility] Clinical History Enlarged lymph node. 04/07/2023 11:41 AM [facility] Materials Received Received are 5 slide(s) labeled [id number] and 1 block(s) along with a copy of the outside pathology report. The materials originate from [place] [address]. All original materials are returned to the referring institution, along with a copy of our final report. 04/07/2023 11:41 AM [facility] Pathologist Location at [facility] 04/07/2023 11:41 AM [facility] Disclaimer The performance characteristics of all immunohistochemical and indirect immunofluorescence stains (if any) cited in this report were determined by the Histopathology Laboratory of [facility]. Some of these tests were developed by [...] the attending (teaching) pathologist. 04/07/2023 11:41 AM [facility] Embedded Images 04/07/2023 11:41 AM [facility] Pathology/Cytolo gy BIOPSY OF LYMPH NODE / Unknown 04/05/2023 11:10 AM CDT 04/06/2023 12:37 PM CDT us Sascha Truong MD LAB - PATHOLOGY/CYTOLOGY ORD ERABLES Final Result Performing Organization Address City/State/[facility] Co de Phone Number [facility] [address] [phone] documented in this encounter Visit Diagnoses Diagnosis Illness, unspecified documented in this encounter
--- OUTSIDE RECORDS SUMMARY | 2025-05-07 19:33 | XMS_ITS | Encounter Summary ---
Author Organization [facility] Address [address] [facility] [place] [address] Care Team Providers Care Steam Shovel Operating Engineer Name Role Phone Unavailable Primary Care Provider Unavailabl e Encounter Details Date Type Department Care Team (Late st Contact Info) Description 04/05/2023 Lab Requisition [facility] - Pathology Lab [address] [place] [address] Sascha Truong MD [address] [place] [address] Localized enlarged lymph nodes Social History Tobacco [...] AM CDT) Case Report Flow Cytometry Case: [id number] Authorizing Provider: Sascha Truong MD Collected: 04/05/2023 11:10 AM [facility] Lab Received: 04/05/2023 04:01 PM Pathologist: Abdirizak Jaimes MD Specimen: Lymph Node, RIGHT NECK 04/06/2023 10:34 AM CDT [facility] Final Diagnosis Lymph node, flow cytometry: - Too few hematopoietic cells for flow cytometry 04/06/2023 10:34 AM T [facility] at 1034 CDT Flow Cytometry Interpretation A cytospin prepared from the flow cytometry specimen has been reviewed for quality improvement analyst purposes. 04/06/2023 10:34 AM T [facility] Flow Cytometry Results Too few hematopoietic cells for flow cytometric analysis. 04/06/2023 10:34 AM T [facility] Reason for test Localized enlarged lymph nodes 785.6 04/06/2023 10:34 AM T [facility] Client Specimen ID # [id number] 04/06/2023 10:34 AM T [facility] Pathologist Location at [facility] 04/06/2023 10:34 AM T [facility] Disclaimer Test performed at [facility], [address] [place] [address], [address]. *The established laboratory minimum viability is 70%. [...] complexity clinical testing. 04/06/2023 10:34 AM T [facility] Embedded Images 10:34 AM T [facility] Pathology/Cytolo gy ENTIRE LYMPH NODE / Unknown 04/05/2023 11:10 AM CDT 04/05/2023 4:01 PM CDT Sascha Truong MD LAB - PATHOLOGY/CYTOLOGY ORD ERABLES Final Result [facility] [address] [place] [address] [address], [facility] [phone] documented in this encounter Visit Diagnoses Diagnosis Localized enlarged lymph nodes Enlargement of lymph nodes documented in this encounter
--- OUTSIDE RECORDS SUMMARY | 2025-05-07 19:33 | XMS_ITS | Clinical Summary ---
Author Organization [facility] Address [facility] [place] [address] Care Team Providers Care Boot Repairer Name Role Phone Isabela Garcia MD Primary [...] on file Legal Sex Male 2:27 PM SWEATBAND SHAPER Gender Identity Not on file Sexual Orientation Not on file Obstetrics History Last Filed Vital Signs Vital Sign Reading Time Taken Comments Blood Pressure - - Pulse - - Temperature - - Respiratory Rate - - Oxygen Saturation - - Inhaled Oxygen Concentration - - Weight 68.8 kg (151 lb 9.6 oz) 07/30/2023 9:34 A M SWEATBAND SHAPER Height 174.6 cm (5' 8.75) 07/30/2023 9:34 AM CS T Body Mass Index 22.55 07/30/2023 9:34 AM SWEATBAND SHAPER Plan of Treatment Health Maintenance Due Date [...] patient's age to complete this topic Insurance [employer] OPEN ACCESS [employer] OPEN ACCESS Care Teams Boot Repairer Relationship Specialty Start Date End Date Isabela Garcia MD [address] [address] PCP - General Family Medicine 04/09/23
--- OUTSIDE RECORDS SUMMARY | 2025-05-07 19:33 | XMS_ITS | Clinical Summary ---
Author Organization [facility] Address [address] [place] [address] Care Team Providers Care Addressing Machine Operator Name Role Phone Unavailable Primary Care Provider Unavailabl e Source Comments [facility],non-owned Affiliates and Associated Physician Practices is amultiple site organization consisting of ambulatory clinics and hospital sitesin [place], [place], [place] and [place]. This disclosure is being madepursuant to the Care Everywhere program and may not contain all information available regarding this patient. Last updated 18.[facility] Allergies No known active allergies Medications * [...] 05/07/2025 8:42 AM CDT Hospital Encounter [facility] [address] [place] [address] Saqib Feliz APRN-CNP 05/07/2025 8:10 AM CDT Hospital Encounter [facility] [address] [place] [address] Saqib Feliz APRN-CNP 05/07/2025 Travel from Last [...] MD on 05/07/2025 9:17 AM Saqib Feliz SUSTAINABLE LANDSCAPE ARCHITECT-RUBBER COVERING MACHINE OPERATOR DIAGNOSTIC IMAGING O RDERABLES Final Result * URINALYSIS - POCT (IP) URGENT CARE (05/07/2025 8:40 AM CDT) Glucose UA neg Negative [facility] Bilirubin UA neg Negative [facility] Ketone UA neg Negative [facility] Specific [place] UA POCT 1.020 1.000 - 1.030 [facility] [...] 05/07/2025 8 :40 AM CDT Saqib Feliz SUSTAINABLE LANDSCAPE ARCHITECT-RUBBER COVERING MACHINE OPERATOR LAB - POINT OF CARE ORDERABLES Final Result Performing Organization Address City/State/[facility] Co de Phone Number [facility] [address] [place] [address] from Last 3 Months Insurance CIGNA CIGNA
--- OUTSIDE RECORDS SUMMARY | 2025-05-07 19:33 | XMS_ITS | Clinical Summary ---
Author Organization [facility] Address [address] [place] [address] Care Team Providers Care Customs Patrol Officer Name Role Phone Unavailable Primary Care Provider [...]
--- OUTSIDE RECORDS SUMMARY | 2025-05-07 19:33 | XMS_ITS | Clinical Summary ---
[facility] Address [address] [place] [address] Care Team Providers Care Shearing Shed Worker Name Role Phone Isabela Garcia MD Primary Care Provider [phone]- [phone] Allergies No known active allergies Medications tadalafiL [...] on file Legal Sex Male 2:04 PM TRACK INSPECTING SUPERVISOR Gender Identity Not on file Sexual Orientation Not on file Last Filed Vital Signs Vital Sign Reading Time Taken Comments Blood Pressure 164/92 08/10/2023 1:46 PM TRACK INSPECTING SUPERVISOR Pulse 73 08/10/2023 1:45 PM TRACK INSPECTING SUPERVISOR Temperature 35.9 C (96.7 F) 08/10/2023 1:45 PM TRACK INSPECTING SUPERVISOR Respiratory Rate 10 08/10/2023 1:45 PM TRACK INSPECTING SUPERVISOR Oxygen Saturation 98% 08/10/2023 1:45 PM TRACK INSPECTING SUPERVISOR Inhaled Oxygen Concentration - - Weight 71.2 kg (157 lb) 08/10/2023 1:45 PM TRACK INSPECTING SUPERVISOR Height 175.3 cm (5' 9) 07/08/2023 8:59 AM TRACK INSPECTING SUPERVISOR Body Mass Index 23.18 07/08/2023 8:59 AM TRACK INSPECTING SUPERVISOR Plan of Treatment Health Maintenance Due Date [...] patient's age to complete this topic Insurance [employer] OPEN ACCESS O [employer] OPEN ACCESS O Care Teams Shearing Shed Worker Relationship Specialty Start Date End Date Isabela Garcia MD [address] [address] PCP - General Family Practice 07/06/23
--- OUTSIDE RECORDS SUMMARY | 2025-05-07 19:33 | XMS_ITS | Encounter Summary ---
Author Organization [facility] Address [facility] [place] [address] Care Team Providers Care Drug Clerk Name Role Phone Unavailable Primary Care Provider [...]
[2025-05-07] MEDS: HYDROcodone/acetaminophen (*CRX) 5-325 MG TABLET 1 TAB PO (20:17)
[2025-05-07 20:34] VITALS: BP 161/90; PULSE 70; RESP 16; O2SAT 97
== END 2025-05-07 20:26 | disposition home or self-care (01) ==
PROVIDERS: Emergency Medicine; Emergency Provider Physician Assistant; PCP Family Medicine
DX: N20.0 Calculus of kidney (principal)
CPT/HCPCS: 36415; 74177; 80053; 81001; 83690; 85025; 87086; 96361; 96374; 96375; 99284; A9270; J1171; J2270; J2405; J7030; Q9967